=== PATIENT | male | born 1990 | race Caucasian/White ===

== ENCOUNTER 2017-06-03 14:17 | Emergency (ER) | payer SELFPAY ==
[~2017-06-03] VITALS: Ht 167.6 cm; Wt 80.3 kg
[~2017-06-03 14:17] MED LIST: ALEVE220 MG PO; MOTRIN600 MG PO; PEN-VEE K,VEET500 MG PO; ULTRAM50 MG PO
[2017-06-03 14:51] LABS: HEMATOCRIT 43.5 % (38.0-50.0); HEMOGLOBIN 15.3 G/DL (12.5-16.6); MCH 29.5 PG (29.0-34.0); MCHC 35.2 G/DL (30.0-36.0); MCV 83.8 FL (86-99); PLATELET COUNT 224 K/uL (156-360); RBC DIS.WIDTH-CV 12.1 % (11.8-14.6); RBC DIS.WIDTH-SD 36.8 % (39-53); RED BLOOD COUNT 5.19 M/uL (4.00-5.50); WHITE BLOOD COUNT 14.2 K/uL (4.1-10.2)
[2017-06-03 15:04] LABS: ALBUMIN 4.4 g/dL (3.2-4.8); CHLORIDE 105 mEq/L (99-109); POTASSIUM 3.6 mEq/L (3.7-5.4); SODIUM 137 mEq/L (136-147)
[2017-06-03 15:06] LABS: GLUCOSE 97 mg/dL (70-99); TOTAL PROTEIN 7.4 g/dL (6.4-8.3)
[2017-06-03 15:08] LABS: TOTAL BILIRUBIN 0.9 mg/dL (0.0-1.0)
[2017-06-03 15:10] LABS: ALKALINE PHOSPHATASE 77 IU/L (3-129); GFR ESTIMATE (CALCULATED) > 59 mL/min/ (58.99-99999)
[2017-06-03 15:11] LABS: UREA NITROGEN (BUN) 17 mg/dL (9-23)
[2017-06-03 15:12] LABS: AST (GOT) 22 IU/L (2-34)
[2017-06-03 15:13] LABS: ALT (GPT) 27 IU/L (3-49); LIPASE 18 U/L (1.0-51.0)
[2017-06-03 17:00] LABS: APPEARANCE CLEAR ((CLEAR)); BILIRUBIN NEGATIVE; BLOOD NEGATIVE; COLOR YELLOW ((YELLOW)); GLUCOSE (STRIP) NEGATIVE; KETONES NEGATIVE; LEUKOCYTES NEGATIVE; NITRITE NEGATIVE; PROTEIN (STRIP) NEGATIVE; SPECIFIC GRAVITY 1.033 (1.000-1.030); UCUL ADDED? NO
[2017-06-03] MEDS ORDERED: IMODIUM A-D2 M2 PO (18:13)
[2017-06-03] MEDS ORDERED: ZOFRAN4 MG PO (18:15)
[2017-06-03] MEDS ORDERED: BENTYL10 MG PO (18:18)
[2017-06-03 18:31] VITALS: BP 122/71
== END 2017-06-03 18:31 | disposition home or self-care (01) ==
LOC: EME 14:17
DX: R10.84 Generalized abdominal pain (principal); R11.2 Nausea with vomiting, unspecified; R19.7 Diarrhea, unspecified; Z90.49 Acquired absence of other specified parts of digestive tract
CPT/HCPCS: 74177; 80053; 81003; 83690; 85027; 99281; 99285; J2405; J3010; J7030

== ENCOUNTER 2017-06-30 20:19 | Emergency (ER) | payer OTHER ==
[~2017-06-30] VITALS: Ht 167.6 cm; Wt 81.9 kg
[~2017-06-30 20:19] MED LIST changes: +BENTYL10 MG PO; +IMODIUM A-D2 M2 PO; +ZOFRAN4 MG PO
[2017-06-30 20:51] LABS: HEMATOCRIT 43.9 % (38.0-50.0); HEMOGLOBIN 15.2 G/DL (12.5-16.6); MCH 29.6 PG (29.0-34.0); MCHC 34.6 G/DL (30.0-36.0); MCV 85.4 FL (86-99); PLATELET COUNT 205 K/uL (156-360); RBC DIS.WIDTH-CV 11.9 % (11.8-14.6); RBC DIS.WIDTH-SD 37.4 % (39-53); RED BLOOD COUNT 5.14 M/uL (4.00-5.50); WHITE BLOOD COUNT 7.8 K/uL (4.1-10.2)
[2017-06-30 21:00] LABS: ALBUMIN 4.8 g/dL (3.2-4.8)
[2017-06-30 21:01] LABS: CHLORIDE 104 mEq/L (99-109); SODIUM 142 mEq/L (136-147)
[2017-06-30 21:03] LABS: GLUCOSE 93 mg/dL (70-99); TOTAL PROTEIN 7.7 g/dL (6.4-8.3)
[2017-06-30 21:05] LABS: TOTAL BILIRUBIN 0.8 mg/dL (0.0-1.0)
[2017-06-30 21:06] LABS: ALKALINE PHOSPHATASE 89 IU/L (3-129)
[2017-06-30 21:07] LABS: CREATININE 0.9 mg/dL (0.6-1.3); GFR ESTIMATE (CALCULATED) > 59 mL/min/ (58.99-99999)
[2017-06-30 21:08] LABS: AST (GOT) 23 IU/L (2-34); UREA NITROGEN (BUN) 10 mg/dL (9-23)
[2017-06-30 21:09] LABS: ALT (GPT) 31 IU/L (3-49)
[2017-06-30 22:39] VITALS: BP 152/99
== END 2017-06-30 22:39 | disposition home or self-care (01) ==
LOC: EME 20:19 → EXP 20:19
PROVIDERS: Emergency Medicine
DX: J06.9 Acute upper respiratory infection, unspecified (principal); R51 Headache
CPT/HCPCS: 71046; 80053; 85027; 87502

== ENCOUNTER 2018-01-12 16:31 | Emergency (ER) | payer SELFPAY ==
[~2018-01-12] VITALS: Ht 167.6 cm; Wt 77.7 kg
[2018-01-12] MEDS ORDERED: FLEXERIL5 MG PO (17:44)
[2018-01-12] MEDS ORDERED: TRAMADOL HCL50 MG PO (17:44)
[2018-01-12] MEDS ORDERED: MOTRIN600 MG PO (17:44)
[2018-01-12 17:52] VITALS: BP 107/87
== END 2018-01-12 18:04 | disposition home or self-care (01) ==
LOC: EME 16:31
DX: S29.012A Strain of muscle and tendon of back wall of thorax, initial encounter (principal); X50.0XXA Overexertion from strenuous movement or load, initial encounter; Y93.89 Activity, other specified
CPT/HCPCS: 99281; 99283; J1885